=== PATIENT | female | born 1955 | race Caucasian/White ===

== ENCOUNTER 2017-01-16 16:00 | Emergency (ER) | payer OTHER ==
[~2017-01-16] VITALS: Ht 165.1 cm; Wt 109.1 kg
[~2017-01-16 16:00] MED LIST: CLON-465 PO; HYDR25TA PO; METF1000 PO; OXYC15TA82 PO; SERT50TA12 PO; WARF10TA23 PO
[2017-01-16 16:12] LABS: GLUCOSE,POINT OF CARE 81 MG/DL (70-110)
[2017-01-16] MEDS ORDERED: LISI-662 PO (16:17)
[2017-01-16] MEDS ORDERED: GABA-529 PO (16:17)
[2017-01-16] MEDS ORDERED: ATEN25TA PO (16:17)
[2017-01-16] MEDS ORDERED: FURO40I IM (16:17)
[2017-01-16] MEDS ORDERED: GLIM2 PO (16:17)
[2017-01-16] MEDS ORDERED: SIMV-260 PO (16:17)
[2017-01-16] MEDS ORDERED: APIX5TAB PO (16:17)
[2017-01-16] MEDS ORDERED: HYDR25TA PO (16:17)
[2017-01-16] MEDS ORDERED: CLON.5 PO (16:17)
[2017-01-16] MEDS ORDERED: TRAM50TA4 PO (16:17)
[2017-01-16] MEDS ORDERED: HYDROCODONE/ACETAMINOPHEN 5-325 MG TABLET PO ONE (17:00)
[2017-01-16] MEDS ORDERED: FURO20 PO (17:02)
[2017-01-16] MEDS ORDERED: DEXAMETHASONE SOD PHOS 4 MG/ML 5 ML VIAL IM ONE (17:45)
[2017-01-16 17:55] VITALS: BP 135/82
== END 2017-01-16 18:01 | disposition home or self-care (01) ==
LOC: EMS 16:04
DX: M19.071 Primary osteoarthritis, right ankle and foot (principal); I10 Essential (primary) hypertension; E11.9 Type 2 diabetes mellitus without complications; E78.00 Pure hypercholesterolemia, unspecified
CPT/HCPCS: 82962; 99284; J1100

== ENCOUNTER 2018-02-05 15:28 | Emergency (ER) | payer MEDICAID, OTHER ==
[~2018-02-05] VITALS: Ht 165.1 cm; Wt 109.1 kg
[~2018-02-05 15:28] MED LIST changes: +APIX5TAB PO; +ATEN25TA PO; +CLON.5 PO; +FURO20 PO; +GABA-529 PO; +GLIM2 PO; +LISI-662 PO; +SIMV-260 PO; +TRAM50TA4 PO; -WARF10TA23 PO
[2018-02-05] MEDS ORDERED: KETOROLAC TROMETHAMINE 60 MG/2 ML VIAL IM ONE (18:15)
[2018-02-05] MEDS ORDERED: BACLOFEN 10 MG TABLET PO ONE (18:15)
[2018-02-05 19:05] VITALS: BP 122/71
== END 2018-02-05 19:07 | disposition home or self-care (01) ==
LOC: EMS 15:30
DX: S43.401A Unspecified sprain of right shoulder joint, initial encounter (principal); E11.9 Type 2 diabetes mellitus without complications; E78.00 Pure hypercholesterolemia, unspecified; I10 Essential (primary) hypertension; Z79.84 Long term (current) use of oral hypoglycemic drugs; Z79.899 Other long term (current) drug therapy; X50.0XXA Overexertion from strenuous movement or load, initial encounter; Y93.89 Activity, other specified; Y92.89 Other specified places as the place of occurrence of the external cause; Y99.8 Other external cause status
CPT/HCPCS: 96372; 99283; J1885

== ENCOUNTER 2019-01-08 14:40 | Emergency (ER) | payer MEDICAID | END 2019-01-08 15:16 | disposition left against medical advice (07) | LOC: EMS 14:47 | DX: K08.89 Other specified disorders of teeth and supporting structures (principal); Z53.21 Procedure and treatment not carried out due to patient leaving prior to being seen by health care provider ==

== ENCOUNTER 2021-11-12 03:00 | Emergency (ER) | payer OTHER ==
[~2021-11-12] VITALS: Ht 165.1 cm; Wt 113.0 kg
[~2021-11-12 03:00] MED LIST changes: +ATEN-73 PO; -ATEN25TA PO; +CLON-592 PO; -CLON.5 PO; +GABA-1216 PO; -GABA-529 PO; -HYDR25TA PO; +HYDR25TA2 PO; -LISI-662 PO; +LISI-894 PO; +SERT-158 PO; -SERT50TA12 PO
[2021-11-12] MEDS ORDERED: ONDANSETRON HCL 4 MG/2 ML VIAL ONE (03:36)
[2021-11-12] MEDS ORDERED: ONDANSETRON HCL 4 MG/2 ML VIAL IVP ONE (03:45)
[2021-11-12 03:48] LABS: BASOPHILS % (AUTO) 0.5 % (0.0-2.0); EOSINOPHILS % (AUTO) 0.6 % (1.0-6.0); HEMATOCRIT 34.1 % (36-46); LYMPHOCYTES # (AUTO) 1.4 K/uL (1.0-4.8); LYMPHOCYTES % (AUTO) 14.2 % (22.0-44.0); MEAN CORPUSCULAR HEMOGLOBIN 27.7 pg (26.0-34.0); MEAN CORPUSCULAR HGB CONC 32.3 G/dL (31.0-37.0); MEAN CORPUSCULAR VOLUME 86 fL (80-100); MONOCYTES # (AUTO) 0.5 K/uL (0.1-1.0); NEUTROPHILS # (AUTO) 7.6 K/uL (1.8-7.7); NEUTROPHILS % (AUTO) 79.7 % (40.0-70.0); PLATELET COUNT (AUTO) 178 K/uL (150-450); RED BLOOD CELL COUNT(AUTO) 3.98 MIL/uL (4.00-5.20); RED CELL DISTRIBUTION WIDTH 15.6 % (11.5-14.5)
[2021-11-12 03:56] LABS: ANION GAP 9 mmol/L (8-16); CALCIUM, TOTAL 8.8 mg/dL (8.8-10.5); CARBON DIOXIDE 26 mmol/L (22-29); CHLORIDE 104 mmol/L (98-107); CREATININE 0.82 mg/dL (0.60-1.30); GLUCOSE,RANDOM 188 mg/dL (70-110); POTASSIUM 3.5 mmol/L (3.5-5.1); SODIUM SERUM 139 mmol/L (136-145); UREA NITROGEN, BLOOD 19 mg/dL (7-18)
[2021-11-12 03:57] LABS: GLOMERULAR FILTR. RATE CALC > 60 mL/min (>60)
[2021-11-12 04:02] LABS: ALANINE AMINOTRANSFERASE 20 U/L (12-78); ALBUMIN 3.4 g/dL (3.4-5.0); ALKALINE PHOSPHATASE 68 U/L (46-116); ASPARTATE AMINOTRANSFERASE 16 U/L (15-37); BILIRUBIN,TOTAL 0.2 mg/dL (0.1-1.0); TOTAL PROTEIN, SERUM 6.7 g/dL (6.4-8.2)
[2021-11-12 05:00] VITALS: BP 110/65
== END 2021-11-12 05:12 | disposition still patient (30) ==
LOC: EMS 03:00
DX: F12.129 Cannabis abuse with intoxication, unspecified (principal); E11.9 Type 2 diabetes mellitus without complications; E78.00 Pure hypercholesterolemia, unspecified; E78.5 Hyperlipidemia, unspecified; I82.402 Acute embolism and thrombosis of unspecified deep veins of left lower extremity; I10 Essential (primary) hypertension; R11.2 Nausea with vomiting, unspecified; Z88.0 Allergy status to penicillin
CPT/HCPCS: 99285; 96374; 71045; 80053; 84484; 85025; 36415; 93005; J2405

== ENCOUNTER 2022-11-09 00:41 | Emergency (ER) | payer OTHER ==
[~2022-11-09] VITALS: Ht 165.1 cm; Wt 104.5 kg
[~2022-11-09 00:41] MED LIST changes: -CLON-465 PO; +CLON-501 PO; +TRAM-559 PO; -TRAM50TA4 PO
[2022-11-09 00:44] VITALS: TEMP 98.4
[2022-11-09 02:01] LABS: BASOPHILS % (AUTO) 0.7 % (0.0-2.0); EOSINOPHILS % (AUTO) 1.1 % (1.0-6.0); HEMATOCRIT 35.9 % (36-46); HEMOGLOBIN 11.8 g/dL (12.0-16.0); LYMPHOCYTES % (AUTO) 26.2 % (22.0-44.0); MEAN CORPUSCULAR HEMOGLOBIN 28.6 pg (26.0-34.0); MEAN CORPUSCULAR HGB CONC 32.8 G/dL (31.0-37.0); MEAN CORPUSCULAR VOLUME 87 fL (80-100); MONOCYTES # (AUTO) 0.5 K/uL (0.1-1.0); MONOCYTES % (AUTO) 7.2 % (2.0-9.0); NEUTROPHILS # (AUTO) 4.9 K/uL (1.8-7.7); NEUTROPHILS % (AUTO) 64.8 % (40.0-70.0); PLATELET COUNT (AUTO) 197 K/uL (150-450); RED BLOOD CELL COUNT(AUTO) 4.12 MIL/uL (4.00-5.20); RED CELL DISTRIBUTION WIDTH 15.2 % (11.5-14.5); WHITE BLOOD COUNT (AUTO) 7.5 K/uL (4.5-11.0)
[2022-11-09 02:15] LABS: PROTHROMBIN TIME 10.6 SEC (9.4-11.6)
[2022-11-09 04:37] VITALS: BP 108/53; PULSE 60; RESP 14
[2022-11-09] MEDS ORDERED: IBUP-1492 PO (04:41)
[2022-11-09] MEDS ORDERED: TRAM-559 PO (04:54)
== END 2022-11-09 04:59 | disposition home or self-care (01) ==
LOC: EMS 00:42
DX: S09.90XA Unspecified injury of head, initial encounter (principal); E11.9 Type 2 diabetes mellitus without complications; E78.00 Pure hypercholesterolemia, unspecified; I10 Essential (primary) hypertension; Z88.0 Allergy status to penicillin; W19.XXXA Unspecified fall, initial encounter; Y93.89 Activity, other specified; Y92.89 Other specified places as the place of occurrence of the external cause; Y99.8 Other external cause status
CPT/HCPCS: 70450; 85025; 85610; 99284